=== PATIENT | female | born 1975 | race Two or more races ===

== ENCOUNTER 2022-07-31 20:36 | Emergency (ER) | payer MEDICAID ==
[~2022-07-31] VITALS: Ht 165.1 cm; Wt 93.0 kg
[2022-07-31 20:47] VITALS: BP 142/74
[2022-07-31] MEDS ORDERED: diphenhydrAMINE 50 MG CAP PO ONE (20:55)
[2022-07-31] MEDS ORDERED: BEN50 PO (20:57)
--- NOTE | 2022-07-31 21:00 | NUR ---
Patient discharged with v/s stable. Written and verbal after care instructions given and explained. Patient alert, oriented and verbalized understanding of instructions. Ambulatory with steady gait. All questions addressed prior to discharge. ID band removed. Patient advised to follow up with PMD. Rx of BENADRYL given. Patient educated on indication of medication including possible reaction and side effects. Opportunity to ask questions provided and answered.
== END 2022-07-31 21:00 | disposition home or self-care (01) ==
LOC: MED 20:36
DX: R21 Rash and other nonspecific skin eruption (principal); T78.49XA Other allergy, initial encounter; K31.1 Adult hypertrophic pyloric stenosis; X58.XXXA Exposure to other specified factors, initial encounter
CPT/HCPCS: 99283; Q0163